=== PATIENT | male | born 1970 | race African-American/Black ===

== ENCOUNTER 2020-01-30 15:12 | Emergency (ER) | payer OTHER, SELFPAY ==
--- NOTE | ~2020-01-30 | XR_ITS ---
XR knee LT min 4V 01/30/2020 15:45 INDICATION: Left knee pain PROCEDURE: 4 views left knee COMPARISON: No prior studies for comparison. FINDINGS: Fracture, dislocation or subluxation is not identified. No significant joint effusion. The soft tissues appear within normal limits. No foreign bodies are identified. IMPRESSION: 1: NO ACUTE BONE OR JOINT ABNORMALITY IDENTIFIED. Reviewed, dictated and finalized at location A.
[2020-01-30 15:34] VITALS: BP 149/88; PULSE 96; RESP 20; TEMP 37; O2SAT 99
--- NOTE | 2020-01-30 16:02 | ED.LOWEXIN ---
HPI - Extremity Injury (Lower) General Chief Complaint: Extremity Injury, Lower Stated Complaint: left knee swollen/painful Time Seen by Provider: 01/30/20 16:02 Source: patient and RN notes reviewed Mode of arrival: ambulatory Limitations: no limitations History of Present Illness HPI Narrative: 49-year-old male who presents to [facility] with complaints of pain to left knee from fall onto his knee this morning. Patient states that he was walking his dog this morning and he got wrapped up with leash and fell directly onto his left knee on side walk. Patient has noted abrasion to his left knee and reports pain to medial aspect of his knee especially with weight bearing.Patient does have full ROM of left knee with stated discomfort, denies any tingling or numbness to left leg or foot, pedal and posterior tibial pulses of strong quality to left foot. MD complaint: knee injury and fall Related Data Home Medications Medication Instructions Recorded Confirmed escitalopram oxalate 10 mg PO DAILY 01/30/20 01/30/20 gabapentin 100 mg PO BID 01/30/20 01/30/20 glipizide 10 mg PO BID 01/30/20 01/30/20 hydrochlorothiazide 12.5 mg PO DAILY 01/30/20 01/30/20 losartan 25 mg PO DAILY 01/30/20 01/30/20 metformin 1,000 mg PO BID 01/30/20 01/30/20 rosuvastatin 5 mg PO DAILY 01/30/20 01/30/20 Allergies Allergy/AdvReac Type Severity Reaction Status Date / Time No Known Allergies Allergy Verified 01/30/20 15:31 Review of Systems Review of Systems: All systems reviewed & are unremarkable except as noted in HPI and below Constitutional: Constitutional: Reports as per HPI and Reports no additional constitutional complaints Eyes: Eyes: Reports as per HPI, Reports no additional eye complaints and Reports other (wears glasses) ENT: Reports system reviewed and no additional complaints, except as documented and Reports as per HPI Cardiovascular: Cardiovascular: Reports as per HPI and Reports no additional cardiovascular complaints Respiratory: Respiratory: Reports as per HPI and Reports no additional respiratory complaints Gastrointestinal: Gastrointestinal: Reports as per HPI and Reports no additional gastrointestinal complaints Genitourinary: Genitourinary: Reports no additional male genitourinary complaints and Reports as per HPI Musculoskeletal: Musculoskeletal: Reports no additional musculoskeletal complaints and Reports as per HPI Comments: Pain to medial aspect of left knee from fall this morning with abrasion noted to knee Integumentary/Breasts: Skin/Breast: Reports system reviewed and no additional complaints, except as docu and Reports as per HPI Neurologic: Reports system reviewed and no additional complaints, except as documented and Reports as per HPI Psychiatric: Psychiatric: Reports no additional psychiatric complaints, Reports as per HPI and Reports anxiety Endocrine: Endocrine: Reports no additional endocrine complaints and Reports as per HPI Comments: diabetic on oral medications Hematologic/Lymphatic: Hematologic/Lymphatic: Reports no additional hematologic/lymphatic complaints and Reports as per HPI Allergic/Immunologic: Allergic/Immunologic: Reports no additional allergic/immunologic complaints and Reports as per HPI PMFSH Past Medical History Medical History (Updated 02/01/20 @ 09:21 by Ivelisse Garcia NP) Diabetes Elevated cholesterol Hypertension Surgical History Surgical History (Updated 01/30/20 @ 16:15 by Ivelisse Garcia NP) History of cataract surgery Bilateral Social History Social History (Updated 01/30/20 @ 16:17 by Ivelisse Garcia NP) Smoking status: Never smoker Alcohol intake: unknown Substance use: unknown Living arrangements: with family Gender identity (if verbalized by the patient): Male Comments At time of signature, agree with nursing past medical, surgical, social history. There is no relevant family history pertinent to the presenting complaint Exam Narrativ
== END 2020-01-30 16:26 | disposition home or self-care (01) ==
PROVIDERS: Emergency Provider Registered Nurse
DX: S80.02XA Contusion of left knee, initial encounter (principal); W19.XXXA Unspecified fall, initial encounter; Y93.K1 Activity, walking an animal; E11.9 Type 2 diabetes mellitus without complications; E78.00 Pure hypercholesterolemia, unspecified; I10 Essential (primary) hypertension
CPT/HCPCS: 73564; 99213; G0463